=== PATIENT | female | born 1980 | race Hispanic/Latino ===

== ENCOUNTER → 2019-09-03 | Day surgery (SDC) | payer OTHER ==
[~2019-09-03] MED LIST: FENTANYL CITRATE/PF 100MCG/2 ML INJ ONE; FISH OIL 1,0001 EAC2 PO; LIDOCAINE HCL 2% LOCAL INJ 5 ML SDV VIAL INJ ONE; MIDAZOLAM HCL 2 MG/2 ML VIAL ONE; PROPOFOL IV EMULSION 10 MG/ML 50 ML VIAL ONE
[2019-09-03 11:45] VITALS: BP 117/75
--- NOTE | 2019-09-03 17:22 | Operative Report ---
DATE OF PROCEDURE: 09/03/2019 SURGEON: Shlomo Carrillo MD PROCEDURE: EGD with biopsies. INDICATIONS FOR EGD: Upper abdominal pain, bloating, nausea. MEDICATIONS: The patient was done under MAC, please see anesthesiologist's note. PROCEDURE IN DETAIL: With the patient in left lateral decubitus position, a flexible fiberoptic Olympus gastroscope was introduced into the esophagus under direct visualization without any difficulty. There was some patchy intense erythema noted in distal esophagus. The scope was then advanced with ease into the stomach. Mucosa overlying the antrum and the body revealed some diffuse erythema and [id number] edema, and biopsies were obtained and sent to stain for H. pylori. Several minute ulcers were noted in the antrum and biopsies were obtained. Pylorus was of normal contour and shape. It was intubated with ease and the scope was advanced all the way to the second portion of the duodenum. Biopsies were obtained from the proximal second portion and duodenal bulb to rule out sprue. The scope was then withdrawn back into the stomach and retroflexed, and mucosa overlying the fundus and the cardia appeared to be within normal limits. The scope was then straightened out, it was subsequently withdrawn, and the patient tolerated the procedure well. IMPRESSION: 1. Distal esophagitis. 2. Gastritis, biopsied, biopsies sent to stain for Helicobacter pylori. 3. Gastric ulcers, antrum, minute, biopsies obtained. 4. Rule out sprue. PLAN: Follow up histology. Initiate Protonix 40 mg 1 p.o. q.a.m. before meals. Shlomo Carrillo MD [facility] [place] /[id number] cc: Dora Casanova MD
== END | disposition home or self-care (01) ==
LOC: OR 08:35 → EDSEX 10:30
PROVIDERS: ATTEND Internal Medicine Gastroenterology
DX: R10.10 Upper abdominal pain, unspecified (principal); R12 Heartburn; R14.0 Abdominal distension (gaseous); K29.50 Unspecified chronic gastritis without bleeding; K20.9 Esophagitis, unspecified; K25.9 Gastric ulcer, unspecified as acute or chronic, without hemorrhage or perforation; Z01.810 Encounter for preprocedural cardiovascular examination; Z01.812 Encounter for preprocedural laboratory examination; K59.09 Other constipation
CPT/HCPCS: 43239; 81025; 93005; J2001; J2250; J2704; J3010